=== PATIENT | male | born 1975 | race Caucasian/White ===

== ENCOUNTER → 2016-08-13 | Outpatient (CLI) | payer OTHER ==
[2015-10-31 19:20] VITALS: BP 109/62
[~2016-08-13] MED LIST: ACET500T68 PO; ALBU18HF IH; GABA-586 PO; NABU500T PO
[2016-08-13 09:05] LABS: BASO % 1 % (0-3); EOS # 0.2 x10^3/uL (0.0-0.7); EOS % 3 % (0-3); HEMATOCRIT 43.2 % (39.0-53.0); HEMOGLOBIN 14.9 g/dL (13.0-17.5); LYMPH # 2.6 x10^3/uL (1.0-4.8); LYMPH % 32 % (24-48); MEAN CORPUSCULAR HEMOGLOBIN 31 pg (25-35); MEAN CORPUSCULAR HGB CONC 35 g/dL (31-37); MEAN CORPUSCULAR VOLUME 90 fL (79-100); MONO % 13 % (0-9); NEUT % 51 % (31-73); PLATELET COUNT 212 x10^3/uL (140-400); RED BLOOD COUNT 4.82 x10^6/uL (4.30-5.70); RED CELL DISTRIBUTION WIDTH 13.9 % (11.5-14.5); WHITE BLOOD COUNT 7.9 x10^3/uL (4.0-11.0)
== END | disposition home or self-care (01) ==
LOC: SPEC 08:57 → EEVIPCON 08:57
PROVIDERS: ATTEND Nurse Practitioner
DX: N10 Acute pyelonephritis (principal)
CPT/HCPCS: 36415; 85027

== ENCOUNTER 2019-09-05 12:27 | Emergency (ER) | payer SELFPAY ==
[~2019-09-05] VITALS: Ht 177.8 cm; Wt 119.5 kg
[~2019-09-05 12:27] MED LIST changes: -ALBU18HF IH; +ALBU2.5V8 IH
[2019-09-05 12:39] VITALS: BP 138/78
[2019-09-05 13:11] LABS: CLARITY,URINE TURBID; COLOR,URINE RED
[2019-09-05 13:12] LABS: BACTERIA,URINE FEW /HPF (0-FEW); RBC,URINE TNTC /HPF (0-2)
[2019-09-05] MEDS ORDERED: IV NORMAL SALINE 1,000ML 1,000 ML IV ONE (13:15)
[2019-09-05] MEDS ORDERED: KETOROLAC 30 MG/ML VIAL. IVP ONE (13:15)
--- NOTE | 2019-09-05 13:32 | PHYS DOC ---
Past History Past Medical History: Asthma, Seizure, Other Past Surgical History: No Surgical History Alcohol Use: None Drug Use: None General Adult EDM: Chief Complaint: BLOOD IN URINE HPI: HPI: Patient is a 43-year-old male who presented to ER today for evaluation of right side abdominal pain, flank pain, hematuria for 3 days. Patient denies any fever, no nausea vomiting, no cough, no trouble breathing. Patient lives in a long term house, he was tested positive for COVID-19 about 5 days ago. Patient is not on any blood thinner, he denies any history of kidney stone. Patient denies any chest pain, no trouble breathing, no headache, no neck pain. Patient denies any sore throat. Review of Systems: Review of Systems: Constitutional: Denies fever or chills Eyes: Denies change in visual acuity HENT: Denies nasal congestion or sore throat Respiratory: Denies cough or shortness of breath Cardiovascular: Denies chest pain or edema GI: Positive for right side abdominal pain, NO nausea, vomiting, bloody stools or diarrhea : Denies dysuria , POSITIVE FOR HEMATURIA Musculoskeletal: Denies back pain or joint pain Integument: Denies rash Neurologic: Denies headache, focal weakness or sensory changes Endocrine: Denies polyuria or polydipsia Lymphatic: Denies swollen glands Psychiatric: Denies depression or anxiety Heart Score: Risk Factors: Risk Factors: DM, Current or recent (<one month) smoker, HTN, HLP, family history of CAD, obesity. Risk Scores: Score 0 - 3: 2.5% MACE over next 6 weeks - Discharge Home Score 4 - 6: 20.3% MACE over next 6 weeks - Admit for Clinical Observation Score 7 - 10: 72.7% MACE over next 6 weeks - Early Invasive Strategies Current Medications: Current Meds: Current Medications Medications (Trade) Dose Ordered Sig/[facility] Start Time Stop Time Status Last Admin Dose Admin Ketorolac Tromethamine (Toradol 30mg Vial) 30 mg 1X ONCE 09/05/19 13:15 09/05/19 13:16 DC Sodium Chloride 1,000 ml @ 1,000 mls/hr 1X ONCE 09/05/19 13:15 09/05/19 14:14 Allergies: Allergies: Allergies Coded Allergies Type Severity Reaction Last Updated Verified Penicillins Allergy Unknown 10/31/15 Yes Physical Exam: PE: Constitutional: Well developed, well nourished, no acute distress, non-toxic appearance. [] HENT: Normocephalic, atraumatic, bilateral external ears normal, oropharynx moist, no oral exudates, nose normal. [] Eyes: PERRLA, EOMI, conjunctiva normal, no discharge. [] Neck: Normal range of motion, no tenderness, supple, no stridor. [] Cardiovascular:Heart rate regular rhythm, no murmur [] Lungs & Thorax: Bilateral breath sounds clear to auscultation [] Abdomen: Bowel sounds normal, soft, There is right flank, right CVA tenderness, no masses, no pulsatile masses. [] Skin: Warm, dry, no erythema, no rash. [] Back: No tenderness, Right CVA tenderness. [] Extremities: No tenderness, no cyanosis, no clubbing, ROM intact, no edema. [] Neurologic: Alert and oriented X 3, normal motor function, normal sensory function, no focal deficits noted. [] Psychologic: Affect normal, judgement normal, mood normal. [] Current Patient Data: Labs: Laboratory Tests Test 09/05/19 12:42 09/05/19 13:24 Urine Collection Type Unknown Urine Color Red Urine Clarity Turbid Urine pH Urine Specific Joffre Urine Protein Urine Glucose (UA) mg/dL Urine Ketones (Stick) mg/dL Urine Blood Urine Nitrite Urine Bilirubin Urine Urobilinogen Dipstick mg/dL Urine Leukocyte Esterase Urine RBC Tntc /HPF Urine WBC 1-4 /HPF Urine Squamous Epithelial Cells None /LPF Urine Bacteria Few /HPF White Blood Count 6.6 x10^3/uL Red Blood Count 4.88 x10^6/uL Hemoglobin 14.8 g/dL Hematocrit 44.7 % Mean Corpuscular Volume 92 fL Mean Corpuscular Hemoglobin 30 pg Mean Corpuscular Hemoglobin Concent 33 g/dL Red Cell Distribution Width 14.9 % Platelet Count 230 x10^3/uL Neutrophils (%) (Auto) 65 % Lymphocytes (%) (Auto) 14 % Monocytes (%) (Auto) 20 % Eosinophils (%) (Auto) 1 % Basophils (%) (Auto) 1 % Neutrophils # (Auto) 4.3 x10^3uL Lymphocytes # (Auto) 0.9 x10^3/uL Monocytes # (Auto) 1.3 x10^3/uL Eosinophils # (Auto) 0.1 x10^3/uL Basophils # (Auto) 0.0 x10^3/uL Sodium Level 140 mmol/L Potassium Level 3.8 mmol/L Chloride Level 105 mmol/L Carbon Dioxide Level 29 mmol/L Anion Gap 6 Blood Urea Nitrogen 14 mg/dL Creatinine 0.9 mg/dL Estimated GFR (Cockcroft-Gault) 93.0 BUN/Creatinine Ratio 16 Glucose Level 97 mg/dL Calcium Level 8.6 mg/dL Total Bilirubin 0.3 mg/dL Aspartate Amino Transf (AST/SGOT) 21 U/L Alanine Aminotransferase (ALT/SGPT) 47 U/L Alkaline Phosphatase 58 U/L Total Protein 7.1 g/dL Albumin 3.5 g/dL Albumin/Globulin Ratio 1.0 Lipase 128 U/L Current Medications Medications (Trade) Dose Ordered Sig/Shailesh Route PRN Reason Start Time Stop Time Status Last Admin Dose Admin Sodium Chloride 1,000 ml @ 1,000 mls/hr 1X ONCE IV 09/05/19 13:15 09/05/19 14:14 DC 09/05/19 13:15 Ketorolac Tromethamine (Toradol 30mg Vial) 30 mg 1X ONCE IVP 09/05/19 13:15 09/05/19 13:16 DC 09/05/19 13:15 Laboratory Tests Test 09/05/19 12:42 Urine Collection Type Unknown Urine Color Red Urine Clarity Turbid Urine pH Urine Specific Joffre Urine Protein (NEG-TRACE) Urine Glucose (UA) mg/dL (NEG) Urine Ketones (Stick) mg/dL (NEG) Urine Blood (NEG) Urine Nitrite (NEG) Urine Bilirubin (NEG) Urine Urobilinogen Dipstick mg/dL (0.2 mg/dL) Urine Leukocyte Esterase (NEG) Urine RBC Tntc /HPF (0-2) Urine WBC 1-4 /HPF (0-4) Urine Squamous Epithelial Cells None /LPF Urine Bacteria Few /HPF (0-FEW) EKG: EKG: [] Radiology/Procedures: Radiology/Procedures: [][address] [address] IMAGING REPORT Signed PATIENT: PHUC GALLAGHER ACCOUNT: [id number] : 1975 LOCATION: ER AGE: 43 SEX: M EXAM STATUS: REG ER ORD. PHYSICIAN: ANGELA MCFARLAND DO REASON: RIGHT FLANK PAIN, HEMATURIA PROCEDURE: CT ABDOMEN PELVIS WO CONTRAST EXAM: Abdomen and pelvis CT without intravenous contrast. HISTORY: Flank pain. Hematuria. TECHNIQUE: Computed tomographic images of the abdomen and pelvis were obtained without contrast. Multiplanar reformatting was performed. *One or more of the following individualized dose reduction techniques were utilized for this examination: 1. Automated exposure control. 2. Adjustment of the mA and/or kV according to patient size. 3. Use of iterative reconstruction technique. COMPARISON: 03/13/2016. FINDINGS: Evaluation of the lower thorax demonstrates atelectasis. There is no infiltrate or effusion. The heart is normal in size. There is hepatic steatosis. The gallbladder, pancreas, spleen and left adrenal gland are unremarkable. There is calcification along the distal medial limb of the right adrenal gland likely due to prior adrenal hemorrhage. No suspicious adrenal lesion is seen. There is a 1 mm nonobstructing stone within the lower mid zone of the right kidney. There is a partially duplicated right renal collecting system. There is prominence of the right lower pole moiety calyces, without prieto hydronephrosis. No obstructing lesion is seen. The urinary bladder is unremarkable. There is no appendicitis. There is no bowel obstruction. There is trace pelvic free fluid. There is no lymphadenopathy. There is no suspicious osseous lesion. IMPRESSION: 1. Hepatic steatosis. 2. Tiny nonobstructing right renal stone. The right renal collecting system is partially duplicated at the lower pole moiety calyces are slightly prominent in size. This may be due to slight caliectasis. No hydronephrosis or obstructing lesion is seen. 3. Trace nonspecific pelvic free fluid. Electronically signed by: Kathi Garcia MD (09/05/2019 2:06 PM) [facility] DICTATED AND SIGNED BY: KATHI GARCIA MD DATE: 09/05/19 1405 CC: ANGELA MCFARLAND DO; JOSE ORTIZ MSN, ASSOCIATE PROFESSOR OF SURGERY ~ Course & Med Decision Making: Course & Med Decision Making COVID-19 CRITERIA: The patient was evaluated during the global COVID-19 pandemic, and that diagnosis was suspected/considered upon their initial presentation. Their evaluation, treatment and testing was consistent with current guidelines for patients who present with complaints or symptoms that may be related to COVID-19. Pertinent Labs and Imaging studies reviewed. (See chart for details) [] E[place]on Disclaimer: Yani Disclaimer: This electronic medical record was generated, in whole or in part, using a voice recognition dictation system. Departure Departure: Impression: Primary Impression: Kidney stone on right side Disposition: HOME, SELF-CARE Condition: STABLE Referrals: JOSE ORTIZ MSN, ASSOCIATE PROFESSOR OF SURGERY (PCP) follow up with a urologist for reevaluation next week KODY CRUZ MD please call this urologist for follow up next week Patient Instructions: Kidney Stones Additional Instructions: Thank you for visiting our Emergency Department. We appreciate you trusting us with your care. If any additional problems come up don't hesitate to return to visit us. Please follow up with your primary care provider so they can plan additional care if needed and know about the problem that you had. If symptoms worsen come back to the Emergency Department. Any concerning symptoms that start such as chest pain, shortness of air, weakness or numbness on one side of the body, running high fevers or any other concerning symptoms return to the ER. Scripts Naproxen Sodium (ANAPROX DS) 550 Mg Tablet 1 TAB PO BID for flank pain for 15 Days, #30 TAB 0 Refills Prov: ANGELA MCFARLAND DO 09/05/19 COVID-19 Assessment COVID-19 Patient Risks: Age 65 or older: No Sign of co-morbidity: Yes Exp to person + for COVID: Yes Exp to PUI: Yes Lower respiratory symptoms: No Fever: No Other: No PPE Use: Full PPE with N95 mask or PAPR: Yes ANGELA MCFARLAND DO September 05, 2019 13:32
[2019-09-05 13:47] LABS: BASO % 1 % (0-3); EOS # 0.1 x10^3/uL (0.0-0.7); EOS % 1 % (0-3); HEMATOCRIT 44.7 % (39.0-53.0); HEMOGLOBIN 14.8 g/dL (13.0-17.5); LYMPH # 0.9 x10^3/uL (1.0-4.8); LYMPH % 14 % (24-48); MEAN CORPUSCULAR HEMOGLOBIN 30 pg (25-35); MEAN CORPUSCULAR HGB CONC 33 g/dL (31-37); MEAN CORPUSCULAR VOLUME 92 fL (79-100); MONO # 1.3 x10^3/uL (0.0-1.1); MONO % 20 % (0-9); NEUT # 4.3 x10^3uL (1.8-7.7); NEUT % 65 % (31-73); PLATELET COUNT 230 x10^3/uL (140-400); RED BLOOD COUNT 4.88 x10^6/uL (4.30-5.70); RED CELL DISTRIBUTION WIDTH 14.9 % (11.5-14.5); WHITE BLOOD COUNT 6.6 x10^3/uL (4.0-11.0)
[2019-09-05 13:51] LABS: CALCIUM 8.6 mg/dL (8.5-10.1); CREATININE 0.9 mg/dL (0.7-1.3); POTASSIUM 3.8 mmol/L (3.5-5.1)
[2019-09-05 13:58] LABS: ALBUMIN 3.5 g/dL (3.4-5.0); TOTAL BILIRUBIN 0.3 mg/dL (0.2-1.0); TOTAL PROTEIN 7.1 g/dL (6.4-8.2)
--- NOTE | 2019-09-05 14:09 | RAD ---
EXAM: Abdomen and pelvis CT without intravenous contrast. HISTORY: Flank pain. Hematuria. TECHNIQUE: Computed tomographic images of the abdomen and pelvis were obtained without contrast. Multiplanar reformatting was performed. *One or more of the following individualized dose reduction techniques were utilized for this examination: 1. Automated exposure control. 2. Adjustment of the mA and/or kV according to patient size. 3. Use of iterative reconstruction technique. COMPARISON: 03/13/2016. FINDINGS: Evaluation of the lower thorax demonstrates atelectasis. There is no infiltrate or effusion. The heart is normal in size. There is hepatic steatosis. The gallbladder, pancreas, spleen and left adrenal gland are unremarkable. There is calcification along the distal medial limb of the right adrenal gland likely due to prior adrenal hemorrhage. No suspicious adrenal lesion is seen. There is a 1 mm nonobstructing stone within the lower mid zone of the right kidney. There is a partially duplicated right renal collecting system. There is prominence of the right lower pole moiety calyces, without prieto hydronephrosis. No obstructing lesion is seen. The urinary bladder is unremarkable. There is no appendicitis. There is no bowel obstruction. There is trace pelvic free fluid. There is no lymphadenopathy. There is no suspicious osseous lesion. IMPRESSION: 1. Hepatic steatosis. 2. Tiny nonobstructing right renal stone. The right renal collecting system is partially duplicated at the lower pole moiety calyces are slightly prominent in size. This may be due to slight caliectasis. No hydronephrosis or obstructing lesion is seen. 3. Trace nonspecific pelvic free fluid. Electronically signed by: Kathi Grimes MD (09/05/2019 2:06 PM) [facility]
[2019-09-05] MEDS ORDERED: NAPR-682 PO (14:33)
== END 2019-09-05 15:12 | disposition home or self-care (01) ==
LOC: ER 12:27
DX: N20.0 Calculus of kidney (principal); J45.909 Unspecified asthma, uncomplicated; Z88.0 Allergy status to penicillin
CPT/HCPCS: 36415; 74176; 80053; 81001; 83690; 85025; 96374; 99284; J1885; J7030

== ENCOUNTER 2019-09-15 16:13 | Emergency (ER) | payer OTHER ==
[~2019-09-15] VITALS: Ht 177.8 cm; Wt 119.5 kg
[~2019-09-15 16:13] MED LIST changes: +NAPR-682 PO
[2019-09-15] MEDS ORDERED: KETOROLAC 30 MG/ML VIAL. IVP ONE (16:30)
[2019-09-15] MEDS ORDERED: cefTRIAXone SODIUM 1 GM VIAL ONE (16:37)
[2019-09-15] MEDS ORDERED: IV NORMAL SALINE 50ML 50 ML ONE (16:37)
[2019-09-15 16:45] LABS: BASO % 0 % (0-3); EOS # 0.1 x10^3/uL (0.0-0.7); EOS % 1 % (0-3); HEMATOCRIT 46.3 % (39.0-53.0); HEMOGLOBIN 15.3 g/dL (13.0-17.5); LYMPH # 2.3 x10^3/uL (1.0-4.8); LYMPH % 27 % (24-48); MEAN CORPUSCULAR HEMOGLOBIN 30 pg (25-35); MEAN CORPUSCULAR HGB CONC 33 g/dL (31-37); MEAN CORPUSCULAR VOLUME 91 fL (79-100); MONO # 1.2 x10^3/uL (0.0-1.1); MONO % 15 % (0-9); NEUT # 4.7 x10^3uL (1.8-7.7); NEUT % 57 % (31-73); PLATELET COUNT 300 x10^3/uL (140-400); RED BLOOD COUNT 5.12 x10^6/uL (4.30-5.70); RED CELL DISTRIBUTION WIDTH 13.8 % (11.5-14.5); WHITE BLOOD COUNT 8.3 x10^3/uL (4.0-11.0)
[2019-09-15 16:52] LABS: CALCIUM 8.8 mg/dL (8.5-10.1); CREATININE 0.9 mg/dL (0.7-1.3); POTASSIUM 3.9 mmol/L (3.5-5.1)
--- NOTE | 2019-09-15 16:53 | PHYS DOC ---
Past History Past Medical History: Asthma, Seizure, Other Past Surgical History: No Surgical History Alcohol Use: None Drug Use: None General Adult EDM: Chief Complaint: FLANK PAIN HPI: HPI: 43-year-old male past medical history significant for asthma and former IV heroin abuser (6yrs ago) presents to the ED from [facility], with complaints of right low back pain that is been intermittent for the past 10 days. Patient was seen here approximately 10 days ago with a CT that showed 1 mm nonobstructive nephrolithiasis, within the lower mid zone of the right kidney. Now is complaining of persistent and worsening hematuria-reports decreased urinary frequency. Pt also tested positive for covid19 3 weeks ago. States he did not fill his prescriptions due to being on quarantine for COVID. Review of systems: Fever, chills, cough, dyspnea, sore throat, nausea, vomiting, flank pain, dysuria, increased urinary frequency/urgency, abdominal pain, heada roney, neck stiffness, urethral discharge, leg swelling, rash or bruising. Current Medications: Current Meds: Current Medications Medications (Trade) Dose Ordered Sig/Shailesh Start Time Stop Time Status Last Admin Dose Admin Ceftriaxone Sodium 1 gm/ Sodium Chloride 50 ml @ 100 mls/hr 1X ONCE 09/15/19 16:30 09/15/19 16:59 09/15/19 16:30 100 MLS/HR Ceftriaxone Sodium (Rocephin) 1 gm STK-MED ONCE 09/15/19 16:37 09/15/19 16:37 DC Ketorolac Tromethamine (Toradol 30mg Vial) 30 mg 1X ONCE 09/15/19 16:30 09/15/19 16:36 DC 09/15/19 16:30 30 MG Sodium Chloride 50 ml @ As Directed STK-MED ONCE 09/15/19 16:37 09/15/19 16:37 DC Allergies: Allergies: Allergies Coded Allergies Type Severity Reaction Last Updated Verified Penicillins Allergy Unknown 10/31/15 Yes Physical Exam: PE: Constitutional: Well developed, well nourished, no acute distress, non-toxic appearance, calm and in no distress HENT: Normocephalic, atraumatic, bilateral external ears normal, oropharynx moist, no oral exudates, nose normal. [] Eyes: EOMI, conjunctiva normal, no discharge. [] Neck: Normal range of motion, no tenderness, supple, no stridor. [] Cardiovascular:Heart rate regular rhythm, no murmur [] Lungs & Thorax: Bilateral breath sounds clear to auscultation [] Abdomen: Bowel sounds normal, soft, no tenderness, no masses, no pulsatile masses. [] Skin: Warm, dry, no erythema, no rash. [] Back: No tenderness, no CVA tenderness. [] Extremities: No tenderness, no cyanosis, no clubbing, ROM intact, no edema. [] Neurologic: Alert and oriented X 3, normal motor function, normal sensory function, no focal deficits noted, unremarkable gait Psychologic: Affect normal, judgement normal, mood normal. [] -gross hematuria in urinal Current Patient Data: Vital Signs: Vital Signs Date Time Temp Pulse Resp B/P (MAP) Pulse Ox O2 Delivery O2 Flow Rate FiO2 09/15/19 16:30 98.4 85 16 158/96 (116) 98 Room Air EKG: EKG: [] Radiology/Procedures: Radiology/Procedures: IMAGING REPORT Signed PATIENT: PHUC GALLAGHER ACCOUNT: [id number] : 1975 LOCATION: ER AGE: 43 SEX: M EXAM STATUS: REG ER ORD. PHYSICIAN: MARIA R HANSEN DO REASON: r.o hydronephrosis/obstruction, renal colic, RT FLANK PAIN PROCEDURE: RENAL COMPLETE RIGHT Exam: Ultrasound renal complete Indication: Renal colic, right flank pain Technique: Real-time grayscale and color Doppler images of the right kidney were obtained by the department extractor operator solvent process. Comparisons: None FINDINGS: Right kidney measures 12.6 x 5.4 x 5.4 cm. No hydronephrosis. Bladder is not seen. Visualized portions of aorta are unremarkable. IMPRESSION: 1. No right-sided hydronephrosis. 2. Left kidney was not imaged, per request Electronically signed by: Rock Bernal MD (09/15/2019 5:09 PM) [id number] DICTATED AND SIGNED BY: ROCK BERNAL MD DATE: 09/15/19 1709 CC: PCP,NO; MARIA R HANSEN DO ~ Impressions: Concern for obstructive nephrolithiasis in the setting of gross hematuria, differential of hematuria includes passing renal stone versus complicated UTI/hemorrhagic cystitis. Will treat with outpatient antibiotics. Patient with no low back pain, fever, chills or vomiting, low suspicion for sepsis versus prostatitis vs pyelonephritis. Tolerated Rocephin with no adverse effects. Patient, in no distress, ambulatory and in no pain. Ultrasound was ordered over CT abdomen pelvis to minimize radiation. CT from 10 days ago was reviewed, urinary bladder was unremarkable, had 1mm stone. Patient did not fill his Naprosyn prescription from 10 days ago. Will commend outpatient urology follow- up information and urgent PMD follow-up. Strict ED return precautions were given for flulike symptoms, nausea, vomiting, back pain or urinary incontinence. All of patient's questions were answered and he was stable at time of discharge. Course & Med Decision Making: Course & Med Decision Making Pertinent Labs and Imaging studies reviewed. (See chart for details) [] Dragon Disclaimer: Dragon Disclaimer: This electronic medical record was generated, in whole or in part, using a voice recognition dictation system. Departure Departure: Impression: Primary Impression: Complicated UTI (urinary tract infection) Additional Impressions: Hematuria Nephrolithiasis Disposition: HOME/RESIDENCE PRIOR TO ADM Condition: STABLE Referrals: PCP,NO (PCP) Patient Instructions: Urinary Tract Infection Scripts Cephalexin (KEFLEX) 500 Mg Capsule 1 CAP PO TID for uti for 10 Days, #30 CAP 0 Refills Prov: MARIA R HANSEN DO 09/15/19 MARIA R HANSEN DO September 15, 2019 16:53
[2019-09-15 17:06] LABS: CLARITY,URINE TURBID; COLOR,URINE RED
[2019-09-15 17:10] LABS: RBC,URINE TNTC /HPF (0-2)
[2019-09-15 17:11] LABS: BACTERIA,URINE MOD /HPF (0-FEW); SQUAMOUS EPITHELIAL CELL,UR FEW /LPF
--- NOTE | 2019-09-15 17:12 | RAD ---
Exam: Ultrasound renal complete Indication: Renal colic, right flank pain Technique: Real-time grayscale and color Doppler images of the right kidney were obtained by the department slp teacher. Comparisons: None FINDINGS: Right kidney measures 12.6 x 5.4 x 5.4 cm. No hydronephrosis. Bladder is not seen. Visualized portions of aorta are unremarkable. IMPRESSION: 1. No right-sided hydronephrosis. 2. Left kidney was not imaged, per request Electronically signed by: Rock Pritchett MD (09/15/2019 5:09 PM) [id number]
[2019-09-15 17:23] VITALS: BP 134/76
[2019-09-15] MEDS ORDERED: CEPH-264 PO (17:27)
== END 2019-09-15 17:34 | disposition home or self-care (01) ==
LOC: ER 16:13
DX: N20.0 Calculus of kidney (principal); N39.0 Urinary tract infection, site not specified; R31.9 Hematuria, unspecified; J45.909 Unspecified asthma, uncomplicated; Z88.0 Allergy status to penicillin
CPT/HCPCS: 36415; 76775; 80048; 81001; 85025; 87086; 96365; 96375; 99284; J0696; J1885; 99285-25

== ENCOUNTER 2019-10-06 19:39 | Emergency (ER) | payer SELFPAY ==
[~2019-10-06] VITALS: Ht 177.8 cm; Wt 135.0 kg
[2019-10-06 19:39] VITALS: BP 126/75
[~2019-10-06 19:39] MED LIST changes: +CEPH-264 PO
--- NOTE | 2019-10-06 19:53 | PHYS DOC ---
Past History Past Medical History: Asthma, Seizure Past Surgical History: No Surgical History Alcohol Use: None Drug Use: None General Adult EDM: Chief Complaint: BLOOD IN URINE HPI: HPI: Patient is a 44 year old male who presents for evaluation of intermittent right flank pain for about 3 weeks. Patient has persistent blood in his urine since that time. Patient has been worked up for this in the emergency department recently for these complaints. However he has not followed up with a urologist or wax specialist. Patient has a prior history of kidney stones and his CT scan abd/pelvis on September 04 showed a right renal stone but no hydronephrosis at that time. Patient denies other complaints including fevers and chills. Patient is in mild to moderate discomfort on arrival. Patient is currently staying at a local senior care house and has limited resources. Review of Systems: Review of Systems: Constitutional: Denies fever or chills Eyes: Denies change in visual acuity HENT: Denies nasal congestion or sore throat Respiratory: Denies cough or shortness of breath Cardiovascular: Denies chest pain or edema GI: Denies abdominal pain, nausea, vomiting, bloody stools or diarrhea : Denies dysuria, has hematuria Musculoskeletal: right flank back pain, no joint pain Integument: Denies rash Neurologic: Denies headache, focal weakness or sensory changes Endocrine: Denies polyuria or polydipsia Lymphatic: Denies swollen glands Psychiatric: Denies depression or anxiety Heart Score: Risk Factors: Risk Factors: DM, Current or recent (<one month) smoker, HTN, HLP, family history of CAD, obesity. Risk Scores: Score 0 - 3: 2.5% MACE over next 6 weeks - Discharge Home Score 4 - 6: 20.3% MACE over next 6 weeks - Admit for Clinical Observation Score 7 - 10: 72.7% MACE over next 6 weeks - Early Invasive Strategies Allergies: Allergies: Allergies Coded Allergies Type Severity Reaction Last Updated Verified Penicillins Allergy Unknown 10/31/15 Yes Physical Exam: PE: Constitutional: Well developed, well nourished, mild distress, non-toxic appearance. [] HENT: Normocephalic, atraumatic, bilateral external ears normal, oropharynx moist, nose normal. [] Eyes: PERRL, EOMI, conjunctiva normal, no discharge. [] Neck: Normal range of motion, no tenderness, supple, no stridor. [] Cardiovascular:Heart rate regular rhythm, no murmur [] Lungs & Thorax: Bilateral breath sounds clear to auscultation [] Abdomen: Bowel sounds normal, soft, no tenderness, no masses, no pulsatile masses. [] Skin: Warm, dry, no erythema, no rash. [] Back: No tenderness, right CVA tenderness. [] Extremities: No tenderness, no cyanosis, no clubbing, ROM intact, no edema. [] Neurologic: Alert and oriented X 3, normal motor function, normal sensory function, no focal deficits noted. [] Psychologic: Affect normal, judgement normal, mood normal. [] Current Patient Data: Labs: Laboratory Tests Test 10/06/19 19:45 10/06/19 19:58 Urine Collection Type Unknown Urine Color Red Urine Clarity Bloody Urine pH Urine Specific [employer] Urine Protein Urine Glucose (UA) mg/dL Urine Ketones (Stick) mg/dL Urine Blood Urine Nitrite Urine Bilirubin Urine Urobilinogen Dipstick mg/dL Urine Leukocyte Esterase Urine RBC Tntc /HPF Urine WBC Occ /HPF Urine Squamous Epithelial Cells Few /LPF Urine Bacteria Few /HPF White Blood Count 9.8 x10^3/uL Red Blood Count 5.01 x10^6/uL Hemoglobin 15.4 g/dL Hematocrit 45.4 % Mean Corpuscular Volume 91 fL Mean Corpuscular Hemoglobin 31 pg Mean Corpuscular Hemoglobin Concent 34 g/dL Red Cell Distribution Width 14.5 % Platelet Count 224 x10^3/uL Neutrophils (%) (Auto) 60 % Lymphocytes (%) (Auto) 26 % Monocytes (%) (Auto) 12 % Eosinophils (%) (Auto) 1 % Basophils (%) (Auto) 1 % Neutrophils # (Auto) 5.9 x10^3uL Lymphocytes # (Auto) 2.6 x10^3/uL Monocytes # (Auto) 1.2 x10^3/uL Eosinophils # (Auto) 0.1 x10^3/uL Basophils # (Auto) 0.1 x10^3/uL Platelet Estimate Pending Sodium Level 145 mmol/L Potassium Level 3.7 mmol/L Chloride Level 106 mmol/L Carbon Dioxide Level 31 mmol/L Anion Gap 8 Blood Urea Nitrogen 19 mg/dL Creatinine 1.1 mg/dL Estimated GFR (Cockcroft-Gault) 73.4 BUN/Creatinine Ratio 17 Glucose Level 113 mg/dL Calcium Level 9.0 mg/dL Total Bilirubin 0.4 mg/dL Aspartate Amino Transf (AST/SGOT) 25 U/L Alanine Aminotransferase (ALT/SGPT) 50 U/L Alkaline Phosphatase 62 U/L Total Protein 7.9 g/dL Albumin 3.8 g/dL Albumin/Globulin Ratio 0.9 Current Medications Medications (Trade) Dose Ordered Sig/Shailesh Route PRN Reason Start Time Stop Time Status Last Admin Dose Admin Acetaminophen (Tylenol) 650 mg 1X ONCE PO 10/06/19 20:30 10/06/19 20:32 DC 10/06/19 20:33 Acetaminophen (Tylenol) 325 mg STK-MED ONCE PO 10/06/19 20:31 10/06/19 20:31 DC EKG: EKG: [] Radiology/Procedures: Radiology/Procedures: [address] [id number] IMAGING REPORT Signed PATIENT: PHUC GALLAGHER ACCOUNT: [id number] : 1975 LOCATION: ER AGE: 43 SEX: M EXAM STATUS: REG ER ORD. PHYSICIAN: ANGELA MCFARLAND DO REASON: RIGHT FLANK PAIN, HEMATURIA PROCEDURE: CT ABDOMEN PELVIS WO CONTRAST EXAM: Abdomen and pelvis CT without intravenous contrast. HISTORY: Flank pain. Hematuria. TECHNIQUE: Computed tomographic images of the abdomen and pelvis were obtained without contrast. Multiplanar reformatting was performed. *One or more of the following individualized dose reduction techniques were utilized for this examination: 1. Automated exposure control. 2. Adjustment of the mA and/or kV according to patient size. 3. Use of iterative reconstruction technique. COMPARISON: 03/13/2016. FINDINGS: Evaluation of the lower thorax demonstrates atelectasis. There is no infiltrate or effusion. The heart is normal in size. There is hepatic steatosis. The gallbladder, pancreas, spleen and left adrenal gland are unremarkable. There is calcification along the distal medial limb of the right adrenal gland likely due to prior adrenal hemorrhage. No suspicious adrenal lesion is seen. There is a 1 mm nonobstructing stone within the lower mid zone of the right kidney. There is a partially duplicated right renal collecting system. There is prominence of the right lower pole moiety calyces, without prieto hydronephrosis. No obstructing lesion is seen. The urinary bladder is unremarkable. There is no appendicitis. There is no bowel obstruction. There is trace pelvic free fluid. There is no lymphadenopathy. There is no suspicious osseous lesion. IMPRESSION: 1. Hepatic steatosis. 2. Tiny nonobstructing right renal stone. The right renal collecting system is partially duplicated at the lower pole moiety calyces are slightly prominent in size. This may be due to slight caliectasis. No hydronephrosis or obstructing lesion is seen. 3. Trace nonspecific pelvic free fluid. Electronically signed by: Kathi Garcia MD (09/05/2019 2:06 PM) [facility] DICTATED AND SIGNED BY: KATHI GARCIA MD DATE: 09/05/19 6761 CC: ANGELA MCFARLAND DO; JOSE ORTIZ MSN, DISTRICT SUPERINTENDENT ~ [] Impressions: [place] [address] IMAGING REPORT Signed PATIENT: PHUC GALLAGHER ACCOUNT: [id number] : 1975 LOCATION: ER AGE: 43 SEX: M EXAM STATUS: REG ER ORD. PHYSICIAN: MARIA R HANSEN DO REASON: r.o hydronephrosis/obstruction, renal colic, RT FLANK PAIN PROCEDURE: RENAL COMPLETE RIGHT Exam: Ultrasound renal complete Indication: Renal colic, right flank pain Technique: Real-time grayscale and color Doppler images of the right kidney were obtained by the department per diem clerk. Comparisons: None FINDINGS: Right kidney measures 12.6 x 5.4 x 5.4 cm. No hydronephrosis. Bladder is not seen. Visualized portions of aorta are unremarkable. IMPRESSION: 1. No right-sided hydronephrosis. 2. Left kidney was not imaged, per request Electronically signed by: Rock Bernal MD (09/15/2019 5:09 PM) [id number] DICTATED AND SIGNED BY: ROCK BERNAL MD DATE: 09/15/19 3634 CC: PCP,NO; MARIA R HANSEN DO ~ Course & Med Decision Making: Course & Med Decision Making Pertinent Labs and Imaging studies reviewed. (See chart for details) [] Yani Disclaimer: Dragon Disclaimer: This electronic medical record was generated, in whole or in part, using a voice recognition dictation system. Patient has had a sonogram of his right kidney on September 14 which did not show any right hydronephrosis or any obvious acute findings. Patient had a CT scan abdomen pelvis which showed a right-sided renal stone but also no hydrone phrosis. Please see the report for additional findings. There was no obstructive kidney stone at that time 2100 patient stable and labs once again unchanged and unremarkable when compared to September 14. Patient needs to see a kidney specialist as soon as possible. This can be done on an outpatient basis patient does not meet admission criteria. Patient does not have health insurance I suggested he find a ressource such as [facility] or equivalent to help him further work-up this hematuria Departure Departure: Impression: Primary Impression: Hematuria Qualified Codes: R31.0 - Gross hematuria Additional Impression: Right flank pain, chronic Disposition: 01 HOME/RESIDENCE PRIOR TO ADM Condition: STABLE Referrals: PCP,NO (PCP) Patient Instructions: Flank Pain, Hematuria, Adult Additional Instructions: Drink plenty fluids, rest, take Tylenol as needed for pain. You need to see a kidney specialist as soon as possible regarding this 3-week history of hematuria. I suggest contacting a clinic such as [facility] to get that specialty referral. Their primary care that is available who can make that immediate referral. The cause of the bleeding in her urine is unclear at this time but she did not appear to have an infection and your kidney function is normal Justification of Admission: Justification of Admission: Justification of Admission Dx: N/A FRANCES HERNÁNDEZ DO Oct 06, 2019 19:53
[2019-10-06 20:17] LABS: BASO # 0.1 x10^3/uL (0.0-0.2); BASO % 1 % (0-3); EOS # 0.1 x10^3/uL (0.0-0.7); EOS % 1 % (0-3); HEMATOCRIT 45.4 % (39.0-53.0); HEMOGLOBIN 15.4 g/dL (13.0-17.5); LYMPH # 2.6 x10^3/uL (1.0-4.8); LYMPH % 26 % (24-48); MEAN CORPUSCULAR HEMOGLOBIN 31 pg (25-35); MEAN CORPUSCULAR HGB CONC 34 g/dL (31-37); MEAN CORPUSCULAR VOLUME 91 fL (79-100); MONO # 1.2 x10^3/uL (0.0-1.1); MONO % 12 % (0-9); NEUT # 5.9 x10^3uL (1.8-7.7); NEUT % 60 % (31-73); PLATELET COUNT 224 x10^3/uL (140-400); RED BLOOD COUNT 5.01 x10^6/uL (4.30-5.70); RED CELL DISTRIBUTION WIDTH 14.5 % (11.5-14.5); WHITE BLOOD COUNT 9.8 x10^3/uL (4.0-11.0)
[2019-10-06 20:24] LABS: CREATININE 1.1 mg/dL (0.7-1.3); GFR 73.4; POTASSIUM 3.7 mmol/L (3.5-5.1)
[2019-10-06] MEDS ORDERED: ACETAMINOPHEN 325 MG TABLET PO ONE ×2 (20:30→20:31)
[2019-10-06 20:31] LABS: ALBUMIN 3.8 g/dL (3.4-5.0); ALBUMIN/GLOBULIN RATIO 0.9 (1.0-1.7); TOTAL BILIRUBIN 0.4 mg/dL (0.2-1.0); TOTAL PROTEIN 7.9 g/dL (6.4-8.2)
[2019-10-06 20:36] LABS: COLOR,URINE RED
[2019-10-06 20:37] LABS: CLARITY,URINE BLOODY
[2019-10-06 20:39] LABS: BACTERIA,URINE FEW /HPF (0-FEW); RBC,URINE TNTC /HPF (0-2); SQUAMOUS EPITHELIAL CELL,UR FEW /LPF; WBC,URINE OCC /HPF (0-4)
[2019-10-06 21:08] LABS: % EOS 2 % (0-5); % LYMPHS 25 % (24-48); % MONOS 5 % (0-10); % SEGS 68 % (35-66)
[2019-10-06 21:09] LABS: PLT ESTIMATE ADEQUATE (ADEQUATE)
== END 2019-10-06 21:22 | disposition home or self-care (01) ==
LOC: ER 19:39
DX: R31.0 Gross hematuria (principal); G89.29 Other chronic pain; R10.9 Unspecified abdominal pain; J45.909 Unspecified asthma, uncomplicated; Z87.442 Personal history of urinary calculi; Z88.0 Allergy status to penicillin
CPT/HCPCS: 36415; 80053; 81001; 85007; 85025; 99283

== ENCOUNTER 2021-07-10 14:15 | Emergency (ER) | payer SELFPAY ==
[~2021-07-10] VITALS: Ht 177.8 cm; Wt 135.0 kg
[~2021-07-10 14:15] MED LIST changes: -NABU500T PO; +NABU500T11 PO
--- NOTE | 2021-07-10 15:02 | PHYS DOC ---
Past History Past Medical History: Asthma, Seizure (ELEANOR EARL APRN) Past Surgical History: No Surgical History (ELEANOR EARL APRN) Alcohol Use: None Drug Use: None (ELEANOR EARL APRN) General Adult EDM: Chief Complaint: LOWER EXT PAIN HPI: HPI: Patient is a 45-year-old male who presents to the emergency department today for left knee pain and swelling that is worse with ambulation that started 3 days ago. Patient rates his pain 10 out of 10. No treatment today but he states that he has been taking Tylenol and ibuprofen. He denies any decreased range of motion or decreased sensation in his extremity, fevers, injury. (ELEANOR EARL APRN) Review of Systems: Review of Systems: Constitutional: See HPI Musculoskeletal: HPI Integument: Denies wounds Neurologic: See HPI (ELEANOR EARL APRN) Allergies: Allergies: Allergies Coded Allergies Type Severity Reaction Last Updated Verified Penicillins Allergy Unknown 10/31/15 Yes (ELEANOR EARL APRN) Physical Exam: PE: Constitutional: Well developed, well nourished, no acute distress, non-toxic appearance. [] HENT: Normocephalic, atraumatic, bilateral external ears normal, oropharynx moist, no oral exudates, nose normal. [] Eyes: PERRl, EOMI, conjunctiva normal, no discharge. [] Neck: Normal range of motion, no stridor Cardiovascular: Normal peripheral perfusion Lungs & Thorax:, No tachypnea Abdomen: Soft and obese Skin: Warm, dry, no erythema, no rash. [] Back: Normal range of motion Extremities: No tenderness, no cyanosis, no clubbing, ROM intact, edema noted bilaterally which is baseline for patient Neurologic: Alert and oriented X 3, normal motor function, normal sensory function, no focal deficits noted. [] Psychologic: Affect normal, judgement normal, mood normal. [] (ELEANOR EARL APRN) Current Patient Data: Vital Signs: Vital Signs Date Time Temp Pulse Resp B/P (MAP) Pulse Ox O2 Delivery O2 Flow Rate FiO2 07/10/21 14:30 98.3 102 16 147/83 (104) 97 Room Air (ELEANOR EARL APRN) EKG: EKG: [] (ELEANOR EARL APRN) Radiology/Procedures: Radiology/Procedures: []REASON: NO KNOWN KNEE INJURY, KNEE PAIN X 3 WEEKS PROCEDURE: KNEE LEFT 3V AP, oblique, and lateral views of the left knee were obtained. Indication: Knee pain for 3 weeks Comparison: none. Findings: No fracture is identified. No significant subluxation dislocation. There is severe degenerative change with significant medial and moderate lateral joint space narrowing. Large tricompartmental osteophytes are identified. There is a intra-articular calcified lesion seen in the posterior medial joint space. No joint effusion. Electronically signed by: Alonso Caban MD (07/10/2021 3:10 PM) [facility] DICTATED AND SIGNED BY: ALONSO CABAN MD DATE: 07/10/21 1509 CC: ELEANOR EARL APRN; PCP,NO ~MTH0 0 (ELEANOR EARL APRN) Heart Score: C/O Chest Pain: N/A Risk Factors: Risk Factors: DM, Current or recent (<one month) smoker, HTN, HLP, family history of CAD, obesity. Risk Scores: Score 0 - 3: 2.5% MACE over next 6 weeks - Discharge Home Score 4 - 6: 20.3% MACE over next 6 weeks - Admit for Clinical Observation Score 7 - 10: 72.7% MACE over next 6 weeks - Early Invasive Strategies (ELEANOR EARL APRN) Course & Med Decision Making: Course & Med Decision Making Pertinent Labs and Imaging studies reviewed. (See chart for details) [] Presents to the emergency department today for left knee pain that started 3 days ago. Patient has no joint laxity, range of motion intact, neuro intact. An x-ray was performed that showed no acute findings. Patient's knee placed in Greg wrap. He was educated on the rice protocol. Advised to take Tylenol and ibuprofen for his pain. I discussed with patient all findings and diagnostic testing as well as the need to follow-up with PCP for further evaluation and treatment or return to the ER if any new or worsening symptoms. Strict return precautions were also discussed at length. Patient voiced understanding and agreement with the plan. Patient is hemodynamically stable at the time of disposition. (ELEANOR EARL APRN) Dragon Disclaimer: Dragon Disclaimer: This electronic medical record was generated, in whole or in part, using a voice recognition dictation system. (ELEANOR EARL APRN) Attending Co-Sign The patient was seen and interviewed as well as examined at the bedside. The chart was reviewed. The case was discussed. Agree with the plan of care. (NEIL CLAIRE DO) Departure Departure: Impression: Primary Impression: Knee pain Qualified Codes: M25.562 - Pain in left knee Disposition: HOME / SELF CARE / HOMELESS Condition: GOOD Referrals: PCP,NO (PCP) Patient Instructions: RICE - Routine Care for Injuries Additional Instructions: You were seen in the emergency department today for knee pain. An x-ray perfo rmed that showed no acute findings. However, you do have degenerative/arthritic changes in your knee. Your knee was placed in Greg wrap. This will likely improve over time. Your symptoms may be improved by something called the rice protocol. This is rest, ice, compression, elevation. Please follow-up when doing intense exercises that may make the pain worse. Sometimes gentle stretching can provide relief, but be careful to injury. It is important to perform gentle range of motion exercises to prevent stiff joints and chronic pain. Use ice packs over the affected areas to help decrease your pain. For the first 24 hours you can apply ice 20 minutes on 20 minutes off for 4 times per day. Sometimes compression such as the use of an Greg wrap can help with the swelling. You may also elevate the affected area to help with the swelling. Take Tylenol and ibuprofen at home for pain. Follow-up with your primary care provider tomorrow regarding your ER visit. If you do not have a primary care provider, you can follow-up with one of the clinics listed on this discharge paperwork. Return to the emergency department if you develop any new injuries, inability to bear weight or walk, decreased range of motion of your knee, decreased sensation in your knee. ELEANOR EARL APRN Jul 10, 2021 15:02 NEIL CLAIRE DO Jul 12, 2021 09:10
--- NOTE | 2021-07-10 15:12 | RAD ---
AP, oblique, and lateral views of the left knee were obtained. Indication: Knee pain for 3 weeks Comparison: none. Findings: No fracture is identified. No significant subluxation dislocation. There is severe degenerative saleh e with significant medial and moderate lateral joint space narrowing. Large tricompartmental osteophy mustapha are identified. There is a intra-articular calcified lesion seen in the posterior medial joint sp hafsa. No joint effusion. Electronically signed by: Alonso Parra MD (07/10/2021 3:10 PM) [facility]
[2021-07-10 15:40] VITALS: BP 132/82
== END 2021-07-10 15:44 | disposition home or self-care (01) ==
LOC: ER 14:15
DX: M25.562 Pain in left knee (principal); R22.42 Localized swelling, mass and lump, left lower limb; J45.909 Unspecified asthma, uncomplicated; Z88.0 Allergy status to penicillin
CPT/HCPCS: 73562; 99283

== ENCOUNTER 2021-07-31 22:48 | Emergency (ER) | payer OTHER ==
[~2021-07-31] VITALS: Ht 177.8 cm; Wt 127.0 kg
--- NOTE | 2021-07-31 23:27 | PHYS DOC ---
Past History Past Medical History: Asthma, Seizure Past Surgical History: No Surgical History Alcohol Use: None Drug Use: None General Adult EDM: Chief Complaint: PSYCH EVALUATION HPI: HPI: 45-year-old male presents with hematuria and suicidal thoughts. The patient has been having hematuria every time he urinates for least last 4 days. He had an episode like this back in 2014 with a neighbor forget what happened. It seemed to spontaneously go away. He does have some right flank pain that is mild and crampy. For the last 1 week, the patient has felt like he has a lot more stress in his life and he would be better off . He has no specific plan. He is living at the [facility]. He denies fever or chills. He has no other complaints this time. Review of Systems: Review of Systems: Constitutional: Denies fever or chills Eyes: Denies change in visual acuity HENT: Denies nasal congestion or sore throat Respiratory: Denies cough or shortness of breath Cardiovascular: Denies chest pain or edema GI: Denies abdominal pain, nausea, vomiting, bloody stools or diarrhea : Hematuria Musculoskeletal: Right flank pain Integument: Denies rash Neurologic: Denies headache, focal weakness or sensory changes Endocrine: Denies polyuria or polydipsia Lymphatic: Denies swollen glands Psychiatric: Depression, suicidal thoughts. Allergies: Allergies: Allergies Coded Allergies Type Severity Reaction Last Updated Verified Penicillins Allergy Unknown 10/31/15 Yes Physical Exam: PE: Constitutional: Well developed, well nourished, obese, no acute distress, non- toxic appearance. [] HENT: Normocephalic, atraumatic, bilateral external ears normal, oropharynx moist, no oral exudates, nose normal. [] Eyes: PERRLA, EOMI, conjunctiva normal, no discharge. [] Neck: Normal range of motion, no tenderness, supple, no stridor. [] Cardiovascular: Heart rate regular rhythm, no murmur [] Lungs & Thorax: Bilateral breath sounds clear to auscultation [] Abdomen: Bowel sounds normal, soft, no tenderness, no masses, no pulsatile masses. [] Skin: Warm, dry, no erythema, no rash. [] Back: No tenderness, no CVA tenderness. [] Extremities: No tenderness, no cyanosis, no clubbing, ROM intact, no edema. [] Neurologic: Alert and oriented X 3, normal motor function, normal sensory function, no focal deficits noted. [] Psychologic: Affect flat, judgement normal, mood depressed. [] EKG: EKG: [] Radiology/Procedures: Radiology/Procedures: [] Heart Score: C/O Chest Pain: N/A Risk Factors: Risk Factors: DM, Current or recent (<one month) smoker, HTN, HLP, family history of CAD, obesity. Risk Scores: Score 0 - 3: 2.5% MACE over next 6 weeks - Discharge Home Score 4 - 6: 20.3% MACE over next 6 weeks - Admit for Clinical Observation Score 7 - 10: 72.7% MACE over next 6 weeks - Early Invasive Strategies Course & Med Decision Making: Course & Med Decision Making Pertinent Labs and Imaging studies reviewed. (See chart for details) The patient's labs are unremarkable. His urinalysis is significant for blood but no infection. Since his last episode spontaneously resolved, this episode may also. He is not anemic. CT of the abdomen pelvis is negative for acute findings. I have advised that he monitor this for the next few days to see if it goes away. If it does not, he will need to follow-up with a urologist. He has been evaluated by the behavioral health team. They have determined that he can be discharged with a safety plan. I agree this is reasonable. He is stable for discharge at this time. [] Yani Disclaimer: Yani Disclaimer: This electronic medical record was generated, in whole or in part, using a voice recognition dictation system. Departure Departure: Impression: Primary Impression: Hematuria Additional Impression: Suicidal thoughts Disposition: HOME / SELF CARE / HOMELESS Condition: STABLE Referrals: PCPMAKAYLA (PCP) Patient Instructions: Hematuria, Adult, Suicidal Feelings, How to Help Yourself NEIL CLAIRE DO Jul 31, 2021 23:27
[2021-07-31 23:28] LABS: BASO % 1 % (0-3); EOS # 0.2 x10^3/uL (0.0-0.7); EOS % 4 % (0-3); HEMATOCRIT 40.9 % (39.0-53.0); HEMOGLOBIN 13.7 g/dL (13.0-17.5); LYMPH # 2.9 x10^3/uL (1.0-4.8); LYMPH % 44 % (24-48); MEAN CORPUSCULAR HEMOGLOBIN 30 pg (25-35); MEAN CORPUSCULAR HGB CONC 34 g/dL (31-37); MEAN CORPUSCULAR VOLUME 90 fL (79-100); MONO # 0.9 x10^3/uL (0.0-1.1); MONO % 14 % (0-9); NEUT # 2.5 x10^3uL (1.8-7.7); NEUT % 38 % (31-73); PLATELET COUNT 261 x10^3/uL (140-400); RED BLOOD COUNT 4.56 x10^6/uL (4.30-5.70); RED CELL DISTRIBUTION WIDTH 14.3 % (11.5-14.5); WHITE BLOOD COUNT 6.5 x10^3/uL (4.0-11.0)
[2021-07-31 23:39] LABS: BARBITURATES NEG (NEG); BENZODIAZEPINES NEG (NEG); CANNABINOIDS NEG (NEG); COCAINE NEG (NEG); METHADONE NEG (NEG); OPIATES NEG (NEG); PHENCYCLIDINE NEG (NEG)
[2021-07-31 23:41] LABS: INFLUENZA A PATIENT NEGATIVE (NEGATIVE); INFLUENZA B PATIENT NEGATIVE (NEGATIVE)
[2021-07-31 23:45] LABS: AMPHETAMINE/METHAMPHETAMINE NEG (NEG)
[2021-07-31 23:48] LABS: BACTERIA,URINE 0 /HPF (0-FEW); CLARITY,URINE CLOUDY; COLOR,URINE RED; RBC,URINE >40 /HPF (0-2); SQUAMOUS EPITHELIAL CELL,UR OCC /LPF; WBC,URINE OCC /HPF (0-4)
[2021-07-31 23:48] LABS: CALCIUM 8.7 mg/dL (8.5-10.1); CREATININE 0.8 mg/dL (0.7-1.3); GFR 105.5; POTASSIUM 3.5 mmol/L (3.5-5.1)
[2021-07-31 23:56] LABS: ALBUMIN 3.2 g/dL (3.4-5.0); ALBUMIN/GLOBULIN RATIO 0.8 (1.0-1.7); TOTAL BILIRUBIN 0.4 mg/dL (0.2-1.0)
[2021-08-01] MEDS ORDERED: KETOROLAC 30 MG/ML VIAL. IVP ONE
--- NOTE | 2021-08-01 00:05 | RAD ---
Exam: CT abdomen/pelvis without intravenous contrast Indication: Right flank pain, hematuria Comparison: CT abdomen pelvis 09/05/2019 Technique: Helical CT imaging performed of the abdomen and pelvis without the use of intravenous cont rast. Sagittal and coronal reformats were obtained. One or more of the following individualized dose reduction techniques were utilized for this examinat ion: 1. Automated exposure control 2. Adjustment of the mA and/or kV according to patient size 3. Use of iterative reconstruction technique. Findings: Inherently limited evaluation without intravenous contrast. Lower chest: Mild groundglass opacities in the posterior left lower lobe adjacent to and old left rib deformities. The heart is normal in size. 2 mm nodule in the right middle lobe is unchanged from and requires no follow-up. Liver: There is diffuse hepatic steatosis. Gallbladder/Biliary Tree: The gallbladder is contracted. Bile ducts are normal. Pancreas: Normal. Spleen: Normal. Adrenal Glands: Normal. Kidneys/Ureters/Bladder: No nephrolithiasis or hydronephrosis. Ureters and bladder are normal. Reproductive Organs: Normal. Stomach, small bowel, and colon: Stomach is normal. No small bowel obstruction. The appendix is dorothy l. Vasculature: No aortic aneurysm. Lymph Nodes: No lymphadenopathy. Peritoneum and retroperitoneum: No free fluid or free air. Bones: No acute osseous abnormality. Miscellaneous: None. IMPRESSION: 1. No urolithiasis or hydronephrosis. 2. Hepatic steatosis. Electronically signed by: Elvia Osei MD (08/01/2021 12:03 AM) [facility]
[2021-08-01 01:40] VITALS: BP 135/57
[2021-08-01] MEDS ORDERED: LEVO750T5 PO (14:20)
== END 2021-08-01 01:40 | disposition home or self-care (01) ==
LOC: ER 22:48
DX: R45.851 Suicidal ideations (principal); R31.9 Hematuria, unspecified; Z20.822 Contact with and (suspected) exposure to COVID-19; J45.909 Unspecified asthma, uncomplicated
CPT/HCPCS: 74176; 80053; 80307; 81001; 85025; 87428; 99284-25; 99285-25

== ENCOUNTER 2021-08-01 11:02 | Emergency (ER) | payer OTHER ==
[~2021-08-01] VITALS: Ht 172.7 cm; Wt 115.0 kg
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
[2021-08-01 12:03] LABS: BASO # 0.1 x10^3/uL (0.0-0.2); BASO % 3 % (0-3); EOS # 0.2 x10^3/uL (0.0-0.7); EOS % 4 % (0-3); HEMATOCRIT 41.5 % (39.0-53.0); HEMOGLOBIN 13.8 g/dL (13.0-17.5); LYMPH # 1.7 x10^3/uL (1.0-4.8); LYMPH % 30 % (24-48); MEAN CORPUSCULAR HEMOGLOBIN 30 pg (25-35); MEAN CORPUSCULAR HGB CONC 33 g/dL (31-37); MEAN CORPUSCULAR VOLUME 90 fL (79-100); MONO # 0.7 x10^3/uL (0.0-1.1); MONO % 12 % (0-9); NEUT # 2.9 x10^3uL (1.8-7.7); NEUT % 52 % (31-73); PLATELET COUNT 251 x10^3/uL (140-400); RED CELL DISTRIBUTION WIDTH 14.7 % (11.5-14.5); WHITE BLOOD COUNT 5.6 x10^3/uL (4.0-11.0)
[2021-08-01 12:28] LABS: CALCIUM 8.5 mg/dL (8.5-10.1); CREATININE 0.7 mg/dL (0.7-1.3); GFR 123.1
[2021-08-01 12:29] LABS: INFLUENZA A PATIENT NEGATIVE (NEGATIVE); INFLUENZA B PATIENT NEGATIVE (NEGATIVE)
[2021-08-01 12:29] LABS: ACETAMIN < 2.0 mcg/mL (10-30); ETHANOL < 10 mg/dL (0-10)
[2021-08-01 12:34] LABS: ALBUMIN 3.3 g/dL (3.4-5.0); TOTAL BILIRUBIN 0.5 mg/dL (0.2-1.0); TOTAL PROTEIN 6.7 g/dL (6.4-8.2)
[2021-08-01 13:25] LABS: AMPHETAMINE/METHAMPHETAMINE NEG (NEG); BARBITURATES NEG (NEG); BENZODIAZEPINES NEG (NEG); CANNABINOIDS NEG (NEG); COCAINE NEG (NEG); METHADONE NEG (NEG); OPIATES NEG (NEG); PHENCYCLIDINE NEG (NEG)
[2021-08-01 13:32] LABS: CLARITY,URINE CLOUDY; COLOR,URINE YELLOW; GLUCOSE,URINE NEG (NEG); NITRITE,URINE NEG (NEG); UROBILINOGEN,URINE 0.2 mg/dL (0.2 mg/dL)
[2021-08-01 13:33] LABS: BACTERIA,URINE MANY /HPF (0-FEW); RBC,URINE >40 /HPF (0-2); SQUAMOUS EPITHELIAL CELL,UR MANY /LPF; WBC,URINE >40 /HPF (0-4)
--- NOTE | 2021-08-01 14:07 | EKG ---
[address] [address] Test Date: 2021-08-01 Test Time: 12:28:44 Pat Name: PHUC GALLAGHER Department: Room: Gender: M Automotive Electrician: GOMEZ : 1975 Requested By: YANNI VELA Order Number: [id number] Reading MD: Galdino Brandt Measurements Intervals Moh[place] Rate: 63 P: MT: QRS: -12 QRSD: 114 T: -5 QT: 380 QTc: 392 Interpretive Statements SINUS RHYTHM LEFTWARD AXIS INCOMPLETE RIGHT BUNDLE BRANCH BLOCK T ABNORMALITY IN INFEROLATERAL LEADS ABNORMAL ECG RI6.02 No previous ECG available for comparison Electronically Signed On 08-11-2021 9:05:59 CDT by Galdino Brandt
[2021-08-01] MEDS ORDERED: levoFLOXacin 250 MG TABLET PO ONE (14:15)
[2021-08-01] MEDS ORDERED: LEVO750T5 PO (14:20)
[2021-08-01 14:44] VITALS: BP 123/75
== END 2021-08-01 16:15 | disposition home or self-care (01) ==
LOC: ER 11:02
DX: R45.851 Suicidal ideations (principal); J45.909 Unspecified asthma, uncomplicated; Z20.822 Contact with and (suspected) exposure to COVID-19; Z88.0 Allergy status to penicillin
CPT/HCPCS: 80053; 80307; 80329; 81001; 83735; 85025; 87077; 87086; 87428; 93005; 99285; C9803; G0480; U0003; 99284

== ENCOUNTER 2021-08-06 11:34 | Emergency (ER) | payer OTHER ==
[~2021-08-06] VITALS: Ht 172.7 cm; Wt 133.4 kg
[~2021-08-06 11:34] MED LIST changes: +LEVO750T5 PO
--- NOTE | 2021-08-06 11:52 | PHYS DOC ---
Past History Past Medical History: Asthma, Seizure (ELEANOR EARL APRN) Past Surgical History: Other Additional Past Surgical Histo: skin graft (ELEANOR EARL APRN) Alcohol Use: None Drug Use: None (ELEANOR EARL APRN) General Adult EDM: Chief Complaint: BLOOD IN URINE HPI: HPI: Patient is a 45-year-old male who presents to the emergency department for hematuria and right flank pain. Patient was seen in this emergency department on 07/31 and 08/01 for similar complaints as well as suicidal ideation. On 07 [address] a [address] scan of his abdomen and pelvis which did not show any kidney stones. He was noted to have a urinary tract infection on August 01 and was discharged home with Levaquin. He reports that he finished his last pill this morning. Patient reports he has been having intermittent hematuria since 2019. He rates his flank pain 5 out of 10. Radiates to his right lower abdomen. Reports taking 2 ibuprofen and 2 naproxen prior to arrival. He reports dysuria. Denies frequency urgency, nausea, vomiting, fever, urethral discharge, suicidal ideation. (ELEANOR EARL APRN) Review of Systems: Review of Systems: Constitutional: See HPI GI: See HPI : See HPI Musculoskeletal: See HPI Psychiatric: See HPI (ELEANOR EARL APRN) Allergies: Allergies: Allergies Coded Allergies Type Severity Reaction Last Updated Verified Penicillins Allergy Unknown 08/06/21 Yes (ELEANOR EARL APRN) Physical Exam: PE: Constitutional: Well developed, well nourished, no acute distress, non-toxic appearance. [] HENT: Normocephalic, atraumatic, bilateral external ears normal, oropharynx moist, no oral exudates, nose normal. [] Eyes: PERRL, EOMI, conjunctiva normal, no discharge. [] Neck: Normal range of motion, no stridor Cardiovascular:Heart rate regular rhythm, no murmur [] Lungs & Thorax: Bilateral breath sounds clear to auscultation [] Abdomen: Bowel sounds normal, soft, no tenderness, no masses, no guarding or rigidity, no pulsatile masses. [] Skin: Warm, dry, no erythema, no rash. [] Back: No tenderness, right CVA tenderness Extremities: No tenderness, no cyanosis, no clubbing, ROM intact, no edema. [] Neurologic: Alert and oriented X 3, normal motor function, normal sensory function, no focal deficits noted. [] Psychologic: Affect normal, judgement normal, mood normal. [] (ELEANOR EARL APRN) Current Patient Data: Labs: Laboratory Tests Test 08/06/21 11:55 Urine Collection Type Clean catch Urine Color Brown Urine Clarity Turbid Urine pH 5.5 Urine Specific Ringle >=1.030 Urine Protein 100 mg/dl Urine Glucose (UA) Neg mg/dL Urine Ketones (Stick) Neg mg/dL Urine Blood Large Urine Nitrite Neg Urine Bilirubin Neg Urine Urobilinogen Dipstick 0.2 mg/dL Urine Leukocyte Esterase Trace Urine RBC Tntc /HPF Urine WBC 11-20 /HPF Urine Squamous Epithelial Cells Few /LPF Urine Bacteria 0 /HPF Current Medications Medications (Trade) Dose Ordered Sig/Shailesh Route PRN Reason Start Time Stop Time Status Last Admin Dose Admin Ketorolac Tromethamine (Toradol Im) 60 mg 1X ONCE IM 08/06/21 12:00 08/06/21 11:55 DC (ELEANOR EARL APRN) EKG: EKG: [] (ELEANOR EARL APRN) Radiology/Procedures: Radiology/Procedures: []PROCEDURE: CT ABDOMEN PELVIS WO CONTRAST CT ABDOMEN+PELVIS WO History: Right flank pain, hematuria. Comparison: 07/31/2021. Technique: Noncontrast CT of the abdomen and pelvis. Findings: There is groundglass attenuation, with peripheral consolidation left lower lobe slightly increased in conspicuity from comparison. Partially visualized healed fracture deformities posterior left 10th and 11th ribs. Diffuse hypoattenuation of the liver compatible steatosis. The gallbladder, pancreas, spleen, and adrenal glands are unremarkable. There is no hydronephrosis or perinephric fat stranding. Duplicated right renal collecting system. No urolithiasis. The bladder is decompressed and unremarkable. Unremarkable prostate. The stomach and small bowel are normal. Normal appendix. Mild colonic stool burden. No colonic wall thickening or pericolonic inflammatory changes. No intra-abdominal free air or free fluid. The unenhanced vasculature demonstrates mild calcification. No aneurysm. No abdominal pelvic adenopathy. Bilateral buttock injection granulomas. Small fat- containing umbilical hernia. No acute osseous abnormalities. Bilateral L5 pars interarticularis defects. No anterolisthesis. Impression: 1. No ureterolithiasis or hydronephrosis. 2. Increasing groundglass attenuation left lung posterior lower lobe may represent infection or atelectasis. 3. Hepatic steatosis. 4. Incidental partially dependent right renal collecting system. 5. Bilateral pars interarticularis defects at L5. ------ Exposure: One or more of the following individualized dose reduction techniques were utilized for this examination: 1. Automated exposure control 2. Adjustment of the mA and/or kV according to patient size 3. Use of iterative reconstruction technique. Electronically signed by: Mehrdad Easno MD (08/06/2021 12:23 PM) [id number] DICTATED AND SIGNED BY: MEHRDAD EASON MD DATE: 08/06/21 1212 CC: ELEANOR EARL APRN; PCP,NO ~ (ELEANOR EARL APRN) Heart Score: C/O Chest Pain: N/A Risk Factors: Risk Factors: DM, Current or recent (<one month) smoker, HTN, HLP, family history of CAD, obesity. Risk Scores: Score 0 - 3: 2.5% MACE over next 6 weeks - Discharge Home Score 4 - 6: 20.3% MACE over next 6 weeks - Admit for Clinical Observation Score 7 - 10: 72.7% MACE over next 6 weeks - Early Invasive Strategies (ELEANOR EARL APRN) Course & Med Decision Making: Course & Med Decision Making Pertinent Labs and Imaging studies reviewed. (See chart for details) Patient presents to the emergency department for hematuria and right flank pain. Work-up in the ER consisted of urinalysis and CT imaging of abdomen and pelvis to rule out kidney stone. Patient was noted to have white blood cell increase in urine trace leukocytes but had no bacteria likely indicating contamination. Patient's CT imaging does show groundglass opacities in the left lower lobe and patient will be discharged home with an antibiotic. Patient is advised to follow-up with urology regarding his hematuria. I discussed with patient all findings and diagnostic testing as well as the need to follow-up with PCP for further evaluation and treatment or return to the ER if any new or worsening symptoms. Strict return precautions were also discussed at length. Patient voiced understanding and agreement with the plan. Patient is hemodynamically stable at the time of disposition. (ELEANOR EARL APRN) Dragon Disclaimer: Dragon Disclaimer: This electronic medical record was generated, in whole or in part, using a voice recognition dictation system. (ELEANOR EARL APRN) Departure Departure: Impression: Primary Impression: Pneumonia Qualified Codes: J18.9 - Pneumonia, unspecified organism Additional Impression: Hematuria Qualified Codes: R31.9 - Hematuria, unspecified Referrals: PCP,NO (PCP) Patient Instructions: Hematuria, Adult, Pneumonia, Adult Additional Instructions: You are seen in the emergency department today for hematuria and flank pain. Your CT scan does show pneumonia in your left lower lung which will be treated with antibiotic. It does not appear that you have a urinary tract infection. You will need to follow-up with a urologist regarding your hematuria and was attached to your discharge paperwork. Please increase your fluids. You can take Tylenol and ibuprofen at home for pain. Return to the emergency department if you develop shortness of breath, chest pain, high fevers refractory to treatment, tractable nausea vomiting, worsening of your pain, abdominal pain. [phone] Scripts Azithromycin (AZITHROMYCIN TABLET) 250 Mg Tablet 1 PKG PO UD for pneumonia for 5 Days, #6 TAB 0 Refills 2 the first day followed by 1 for days 2-5 Prov: ELEANOR EARL APRN 08/06/21 Attending Signature Attending Signature I have reviewed the PA/PAID INTERNSHIP's note and plan of care. I was available for consultation as needed during the patient's visit in the emergency department. I agree with the clinical impression, plan, and disposition. (CARLOS PECK DO) ELEANOR EARL APRN Aug 06, 2021 11:52 CARLOS PECK DO Aug 07, 2021 10:08
[2021-08-06] MEDS ORDERED: KETOROLAC 60 MG/2 ML VIAL. IM ONE (12:00)
--- NOTE | 2021-08-06 12:26 | RAD ---
CT ABDOMEN+PELVIS WO History: Right flank pain, hematuria. Comparison: 07/31/2021. Technique: Noncontrast CT of the abdomen and pelvis. Findings: There is groundglass attenuation, with peripheral consolidation left lower lobe slightly increased in conspicuity from comparison. Partially visualized healed fracture deformities posterior left 10th an d 11th ribs. Diffuse hypoattenuation of the liver compatible steatosis. The gallbladder, pancreas, spleen, and adr enal glands are unremarkable. There is no hydronephrosis or perinephric fat stranding. Duplicated right renal collecting system. No urolithiasis. The bladder is decompressed and unremarkable. Unremarkable prostate. The stomach and small bowel are normal. Normal appendix. Mild colonic stool burden. No colonic wall t hickening or pericolonic inflammatory changes. No intra-abdominal free air or free fluid. The unenhanced vasculature demonstrates mild calcification. No aneurysm. No abdominal pelvic adenopat hy. Bilateral buttock injection granulomas. Small fat-containing umbilical hernia. No acute osseous a bnormalities. Bilateral L5 pars interarticularis defects. No anterolisthesis. Impression: 1. No ureterolithiasis or hydronephrosis. 2. Increasing groundglass attenuation left lung posterior lower lobe may represent infection or atel ectasis. 3. Hepatic steatosis. 4. Incidental partially dependent right renal collecting system. 5. Bilateral pars interarticularis defects at L5. ------ Exposure: One or more of the following individualized dose reduction techniques were utilized for thi s examination: 1. Automated exposure control 2. Adjustment of the mA and/or kV according to patient size 3. Use of iterative reconstruction technique. Electronically signed by: Mehrdad Eason MD (08/06/2021 12:23 PM) [id number]
[2021-08-06 12:44] LABS: BACTERIA,URINE 0 /HPF (0-FEW); CLARITY,URINE TURBID; COLOR,URINE BROWN; GLUCOSE,URINE NEG (NEG); NITRITE,URINE NEG (NEG); RBC,URINE TNTC /HPF (0-2); SQUAMOUS EPITHELIAL CELL,UR FEW /LPF; UROBILINOGEN,URINE 0.2 mg/dL (0.2 mg/dL)
[2021-08-06] MEDS ORDERED: AZIT250T6 PO (13:11)
[2021-08-06 13:15] VITALS: BP 153/82
[2021-08-06] MEDS ORDERED: HYDROcodone/APAP 5/325MG 1 TAB TABLET PO ONE (13:15)
== END 2021-08-06 13:24 | disposition home or self-care (01) ==
LOC: ER 11:34
DX: J18.9 Pneumonia, unspecified organism (principal); R31.9 Hematuria, unspecified; J45.909 Unspecified asthma, uncomplicated; Z88.0 Allergy status to penicillin
CPT/HCPCS: 74176; 81001; 87086; 99284

== ENCOUNTER 2021-09-06 18:58 | Emergency (ER) | payer SELFPAY ==
[~2021-09-06] VITALS: Ht 172.7 cm; Wt 133.4 kg
[~2021-09-06 18:58] MED LIST changes: +AZIT250T6 PO
[2021-09-06 19:00] VITALS: BP 140/93
[2021-09-06] MEDS ORDERED: DEXAMETHASONE SOD PHOS 10 MG/ML VIAL. IM ONE (19:30)
[2021-09-06] MEDS ORDERED: IPRATRPIUM/ALBUTEROL 0.5/2.5MG 3 ML NEBU. NEB ONE (19:30)
[2021-09-06] MEDS ORDERED: ALBUTEROL SULFATE 8GM INHALER. INH ONE (19:30)
--- NOTE | 2021-09-06 19:30 | PHYS DOC ---
Past History Past Medical History: Asthma, Seizure Past Surgical History: Other Additional Past Surgical Histo: skin graft Alcohol Use: None Drug Use: None General Adult EDM: Chief Complaint: COUGH HPI: HPI: 45-year-old male presents with wheezing and shortness of breath. Patient was seen in this emergency room about a month ago and diagnosed with pneumonia. He took his antibiotics as prescribed. He states that he has been feeling like his cough is coming back and he is having difficulty taking a deep breath for at least the last 1 week. He thinks he is wheezing at this time. He has no history of asthma or COPD. Denies being a smoker. No known seasonal allergies. He does not report fever or chills. He denies chest pain. Review of Systems: Review of Systems: Constitutional: Denies fever or chills Eyes: Denies change in visual acuity HENT: Denies nasal congestion or sore throat Respiratory: Cough with shortness of breath Cardiovascular: Denies chest pain or edema GI: Denies abdominal pain, nausea, vomiting, bloody stools or diarrhea : Denies dysuria Musculoskeletal: Denies back pain or joint pain Integument: Denies rash Neurologic: Denies headache, focal weakness or sensory changes Endocrine: Denies polyuria or polydipsia Lymphatic: Denies swollen glands Psychiatric: Denies depression or anxiety Current Medications: Current Meds: Current Medications Medications (Trade) Dose Ordered Sig/Shailesh Start Time Stop Time Status Last Admin Dose Admin Albuterol/ Ipratropium (Duoneb) 3 ml 1X ONCE 09/06/21 19:30 09/06/21 19:31 Dexamethasone Sodium Phosphate (Decadron) 10 mg 1X ONCE 09/06/21 19:30 09/06/21 19:31 Allergies: Allergies: Allergies Coded Allergies Type Severity Reaction Last Updated Verified Penicillins Allergy Unknown 08/06/21 Yes Physical Exam: PE: Constitutional: Well developed, well nourished, obese, no acute distress, non- toxic appearance. [] HENT: Normocephalic, atraumatic, bilateral external ears normal, oropharynx moist, no oral exudates, nose normal. [] Eyes: PERRLA, EOMI, conjunctiva normal, no discharge. [] Neck: Normal range of motion, no tenderness, supple, no stridor. [] Cardiovascular: Heart rate regular rhythm, no murmur [] Lungs & Thorax: Bilateral expiratory wheezing throughout [] Abdomen: Bowel sounds normal, soft, no tenderness, no masses, no pulsatile masses. [] Skin: Warm, dry, no erythema, no rash. [] Back: No tenderness, no CVA tenderness. [] Extremities: No tenderness, no cyanosis, no clubbing, ROM intact, no edema. [] Neurologic: Alert and oriented X 3, normal motor function, normal sensory function, no focal deficits noted. [] Psychologic: Affect normal, judgement normal, mood normal. [] EKG: EKG: [] Radiology/Procedures: Radiology/Procedures: [] Heart Score: C/O Chest Pain: N/A Risk Factors: Risk Factors: DM, Current or recent (<one month) smoker, HTN, HLP, family h istory of CAD, obesity. Risk Scores: Score 0 - 3: 2.5% MACE over next 6 weeks - Discharge Home Score 4 - 6: 20.3% MACE over next 6 weeks - Admit for Clinical Observation Score 7 - 10: 72.7% MACE over next 6 weeks - Early Invasive Strategies Course & Med Decision Making: Course & Med Decision Making Pertinent Labs and Imaging studies reviewed. (See chart for details) The patient is wheezing throughout. I ordered 10 mg of Decadron IM as well as DuoNeb treatment. I will discharge patient with 3 more days of prednisone and an albuterol MDI. His chest x-ray is negative for pneumonia. I have advised him to follow-up with his primary care physician to discuss pulmonary function testing. He is stable for discharge at this time. [] Yani Disclaimer: Yani Disclaimer: This electronic medical record was generated, in whole or in part, using a voice recognition dictation system. Departure Departure: Impression: Primary Impression: Reactive airway disease Disposition: HOME / SELF CARE / HOMELESS Condition: STABLE Referrals: PCP,NO (PCP) Patient Instructions: Asthma, Adult, [id number] Scripts Albuterol Sulfate (PROAIR HFA INHALER) 8.5 Gm Hfa.aer.ad 2 PUFF IH PRN Q4-6HRS PRN for wheezing, #1 INHALER 0 Refills Prov: NEIL CLAIRE DO 09/06/21 Prednisone (PREDNISONE) 10 Mg Tablet 50 MG PO DAILY for asthma for 3 Days, #15 TAB Prov: NEIL CLAIRE DO 09/06/21 NEIL CLAIRE DO September 06, 2021 19:30
[2021-09-06] MEDS ORDERED: PRED-220 PO (20:47)
[2021-09-06] MEDS ORDERED: ALBU2.5V8 IH (20:47)
--- NOTE | 2021-09-06 21:15 | RAD ---
EXAMINATION: XR CHEST 1V CLINICAL HISTORY: Shortness of breath, wheezing. EXAM DATE/TIME: 09/06/2021 8:06 PM COMPARISON: None FINDINGS: Lines, Tubes, and Devices: None. Cardiomediastinal Silhouette: Within normal limits. Lungs and Pleura: Mild patchy opacities in the right lower lung zone. No evidence of pleural effusion or pneumothorax. Bones and Soft Tissues: Mild degenerative changes in the thoracic spine. IMPRESSION: Mild patchy airspace disease in the right lower lung zone. Electronically signed by: Jay Hendrickson DO (09/06/2021 9:13 PM) [email or web address]
== END 2021-09-06 20:50 | disposition home or self-care (01) ==
LOC: ER 18:58
DX: J45.909 Unspecified asthma, uncomplicated (principal); Z88.0 Allergy status to penicillin
CPT/HCPCS: 71045; 94640; 96372; 99284; J1100; 94664